=== PATIENT | male | born 1965 | race Caucasian/White ===

== ENCOUNTER 2019-03-10 05:34 | Day surgery (SDC) | payer MEDICARE, MEDICAID ==
[2019-03-10] MEDS ORDERED: Midazolam 1 MG/ML 2 ML SDV IV ONE ×5 (05:35→06:52)
[2019-03-10] MEDS ORDERED: fentaNYL 100 MCG/2 ML SDV IV ONE ×3 (05:35→06:47)
[2019-03-10] MEDS ORDERED: Sodium Chloride 0.9% 10 ML Syringe FLUSH PRN (06:00)
[2019-03-10] MEDS ORDERED: Dextrose 5%-0.45% NaCl 1,000 ML IV SCH (06:00)
[2019-03-10] MEDS ORDERED: Midazolam 1 MG/ML 2 ML SDV ONE ×2 (06:07→06:32)
[2019-03-10] MEDS ORDERED: fentaNYL 100 MCG/2 ML SDV ONE (06:08)
--- NOTE | 2019-03-10 09:51 | OR ---
DATE: 03/10/2019 PROCEDURE: Total colonoscopy, NBI, and cold snare polypectomy. INSTRUMENT USED: PCF-H190DL Olympus video colonoscope. PREMEDICATIONS: Fentanyl 100 mcg intravenous, Versed 3 mg intravenous. Nasal O2 cannula. The procedure was done under pulse oximetry, BP recording, and vehicle monitor technician. INDICATION: The patient with previous colonic polyp and colon cancer resection. Surveillance colonoscopic examination is done for detection of any polypoid lesions and removal, endoscopic hemostasis therapy if needed. DESCRIPTION OF PROCEDURE: Initial rectal exam was unremarkable. Rigid anoscopy showed small internal hemorrhoids without bleeding from them. The colonoscope was passed with ease. Few diverticula were noted in the distal left colon. The scope was passed with ease up to the ileocecal area. Photographs were taken of the normal-appearing cecum identified by landmarks of appendiceal orifice and double-bulged ileocecal folds. No bleeding was noted from any of the visualized areas at the commencement of the examination. No stricture. No vascular ectasia. No large isolated ulcerations seen. No evidence of diffuse inflammatory bowel disease in the form of friability, contact bleeding, or ulcerations. Probing the proximal sides of folds and flexures using adequate distention and clearing up the stool material, withdrawal of the scope was made. In the distal descending colon, 1 cm sized benign-appearing superficial polyp was noted. NBI views were obtained, photographs were taken. Piecemeal cold polypectomy was done. The tissues obtained were sent for histopathology. Photographs were taken of the polypectomy area. No bleeding was noted from any of the visualized areas at the completion of examination. IMPRESSION: 1. Internal hemorrhoids. 2. Diverticulosis. 3. Descending colon polyp. The patient tolerated the procedure well. [facility] /[id number]
== END 2019-03-10 09:11 | disposition home or self-care (01) ==
LOC: DL.ENDO 05:34
PROVIDERS: ATTEND Internal Medicine Gastroenterology
DX: Z08 Encounter for follow-up examination after completed treatment for malignant neoplasm (principal); K63.5 Polyp of colon; K64.8 Other hemorrhoids; K57.30 Diverticulosis of large intestine without perforation or abscess without bleeding; D69.6 Thrombocytopenia, unspecified; I10 Essential (primary) hypertension; D64.9 Anemia, unspecified; F41.1 Generalized anxiety disorder; F79 Unspecified intellectual disabilities; Z86.010 Personal history of colon polyps; Z90.49 Acquired absence of other specified parts of digestive tract; Z93.0 Tracheostomy status; Z98.890 Other specified postprocedural states
CPT/HCPCS: 45385; J2250; J3010; J7042; 88305

== ENCOUNTER 2022-04-07 05:18 | Day surgery (SDC) | payer MEDICARE, MEDICAID ==
[2022-04-07] MEDS ORDERED: fentaNYL 100 MCG/2 ML SDV IV ONE ×3 (05:19→06:20)
[2022-04-07] MEDS ORDERED: Midazolam 1 MG/ML 2 ML SDV IV ONE ×5 (05:19→06:25)
[2022-04-07] MEDS ORDERED: Dextrose 5%-0.45% NaCl 1,000 ML IV SCH (05:40)
[2022-04-07] MEDS ORDERED: fentaNYL 100 MCG/2 ML SDV ONE (06:04)
[2022-04-07] MEDS ORDERED: Midazolam 1 MG/ML 2 ML SDV ONE (06:04)
== END 2022-04-07 08:35 | disposition home or self-care (01) ==
LOC: DL.ENDO 05:18
PROVIDERS: ATTEND Internal Medicine Gastroenterology
DX: Z12.11 Encounter for screening for malignant neoplasm of colon (principal); D12.4 Benign neoplasm of descending colon; I10 Essential (primary) hypertension; E11.9 Type 2 diabetes mellitus without complications; Z85.048 Personal history of other malignant neoplasm of rectum, rectosigmoid junction, and anus; Z98.890 Other specified postprocedural states
CPT/HCPCS: J2250; J3010; J7042